=== PATIENT | female | born 1955 | race Caucasian/White ===

== ENCOUNTER 2021-08-05 15:17 | Emergency (ER) | payer BC ==
--- OUTSIDE RECORDS SUMMARY | 2021-08-05 15:21 | XMS REPORT | Continuity of Care Document ---
:1955 Author Organization [facility] t Address [address] [place] [address] Care Team Providers Name Role Phone Virgen DE JESUS Attending Clinician Unavailable Lab, Fam Pob I Attending Clinician Unavailable Virgen Pena Attending Clinician Payers Payer Name Policy Type Policy Number Effective Date Expiration Date S [facility] - [id number] 2020 00:00:00 OUT OF STATE Problems This patient has no known problems. Allergies, Adverse Reactions, Alerts Allergy Allergy Status Severity Reaction(s) Onset Inactive Treating Comm ents Source Name Type Date Date Clinician NO KNOWN Drug Active Univers ALLERGIE Class ity of [facility] Latex Adverse Active rash [facility] Social History Social Habit Start Date Stop Date Quantity Comments Source Sex Assigned At Uni versity [facility] Exposure to SARS-CoV-2 Not sure [facility] [place] (event) [facility] Smoking Status Start Date Stop Date Source Unknown if ever smoked Universit y [facility] Medications Ordered Filled Start Stop Current Ordering Indication Dosage Frequency Signature Comments Components Source Medication Medication Date Date Medication? Clinician (SIG) Name Name Probiotic Probiotic Yes Nelsy as [facility] Calcium + D Calcium + D Yes Nelsy as [facility] Procedures This patient has no known procedures. Encounters Start End Encounter Admission Attending Care Care Encounter Source Date/Time Date/Time Type Type Clinicians Facility Department ID 2021-07-18 2021-07-18 ambulatory [facility] [id number] [facility] Outpat[facility] ent Clinics 2020-08-15 2020-08-15 Outpatient Rafy GISSELL [facility] [id number] Univers 13:00:00 13:00:00 DANA la [facility] 2020-08-15 2020-08-15 Laboratory Lab, Adc Fam Pob I [facility] 1.2. [id number] [facility] 12:37:12 12:57:[address] [id number] [id number] Jose as Professio [id number] [address] Office Building One 2019-10-27 2019-10-27 [facility] [id number] [address] 11:26:00 11:26:00 [facility] Medicine Outpati ent Clinics 2019-10-15 2019-10-15 [facility] [id number] [address] 23[facility]06:00 23:06:00 [facility] Medicine Outpati [facility] Clinics 2019-10-11 2019-10-11 [facility] [id number] 11:15:00 11:15:00 [facility] Medicine Outpati ent Clinics 2019-09-27 2019-09-27 [facility] [id number] 10:47:00 10:47:00 [facility] Medicine Outpati ent Clinics 2019-06-13 2019-06-13 [facility] [id number] [address] 11:40:00 11:40:00 [facility] Medicine Outpati ent Clinics 2018-12-17 2018-12-17 [facility] [id number] 10:20:00 10:20:00 [facility] Medicine Outpati ent Clinics 2018-11-18 2018-11-18 [facility] [id number] 10:20[facility]00 10:20:00 [facility] 2018-07-05 2018-07-05 Outpatient Grace Drake [id number] [facility] 08[facility]40[facility]00 08:40:00 [facility] 2018-06-23 2018-06-23 Outpatient Grace Drake [id number] [facility] 09:00:00 09:00:00 [facility] ent Clinics Results This patient has no known results.
[2021-08-05 16:09] LABS: Absolute Lymphocytes (CBC) 1.7 K/uL (0.7-4.9); Hematocrit 37.9 % (36.0-45.0); Lymphocytes % 29.2 % (15.3-44.8); MPV 7.3 fL (7.6-11.3); RBC Red Blood Cell Count 4.29 M/uL (3.86-4.86)
[2021-08-05 16:12] LABS: Protime INR 0.98
[2021-08-05 16:25] LABS: ALT/SGPT 31 U/L (12-78); AST/SGOT 17 U/L (15-37); Albumin 3.8 g/dL (3.4-5.0); Alkaline Phosphatase 84 U/L (45-117); BUN Blood Urea Nitrogen 14 mg/dL (7-18); Bicarbonate 29 mmol/L (21-32); Bilirubin Direct < 0.1 mg/dL (0-0.2); Bilirubin Total 0.3 mg/dL (0.2-1.0); Glucose Level 122 mg/dL (74-106); Magnesium 2.3 mg/dL (1.8-2.4); NT PRO-BNP 60 pg/mL (<125); Potassium 3.9 mmol/L (3.5-5.1); Protein, Total 7.8 g/dL (6.4-8.2); Sodium Level 139 mmol/L (136-145)
--- NOTE | 2021-08-05 16:45 | RAD REPORT ---
EXAM DESCRIPTION: RAD - Chest Single View - 08/05/2021 4:01 pm CLINICAL HISTORY: CHEST PAIN COMPARISON: None TECHNIQUE: AP portable chest image was obtained 08/05/2021 4:01 pm . FINDINGS: No peripheral mass or consolidation. Interstitial markings are prominent. This is probably interstitial chronic disease. In the absence of a comparison. Superimposed interstitial edema or inf iltrate cannot be excluded. Heart and vasculature are normal. No measurable pleural effusion and no p neumothorax. No acute bony abnormality seen. No acute aortic findings suspected. IMPRESSION: No acute cardiopulmonary process is suspected. The mild prominence of the interstitial pattern on this baseline study is probably chronic disease ra ther than a mild interstitial edema or infiltrate.
--- NOTE | 2021-08-05 19:30 | ER ---
Nurse's Notes [facility] Name: Trish Prakash Age: 65 yrs Sex: Female : 1955 Arrival Date: 08/05/2021 Time: 15:20 Bed 18 Private MD: Dafne Esparza Diagnosis: Chest pain, unspecified Presentation: 08/05 15:28 Chief complaint: Patient states: "I was diagnosed with COVID 9 weeks ago. had gotten jd3 better, but had been coughing for 7 weeks. now I am having some chest pressure/pain and left arm numbness and that started Thursday and my doctor recommended me come to the ER and check my heart as well as to get a COVID swab.". Coronavirus screen: At this time, the client does not indicate any symptoms associated with coronavirus-19. Ebola Screen: No symptoms or risks identified at this time. Initial Sepsis Screen: Does the patient meet any 2 criteria? No. Patient's initial sepsis screen is negative. Does the patient have a suspected source of infection? No. Patient's initial sepsis screen is negative. Risk Assessment: Do you want to hurt yourself or someone else? Patient reports no desire to harm self or others. Onset of symptoms was August 05, 2021. 15:28 Method Of Arrival: Ambulatory jd3 15:28 Acuity: MIRANDA 3 jd3 Historical: - Allergies: 15:30 No Known Allergies; jd3 - Home Meds: 15:30 None [Active]; jd3 - PMHx: 15:30 None; jd3 - PSHx: 15:30 left knee; left wrist; jd3 - Immunization history:: Adult Immunizations up to date, Client reports having NOT received the Covid vaccine. Flu vaccine is not up to date. - Social history:: Smoking status: Patient denies any tobacco usage or history of. Screenin:13 Abuse screen: Denies threats or abuse. Nutritional screening: No deficits noted. ll1 Tuberculosis screening: No symptoms or risk factors identified. Fall Risk Total Suero Fall Scale indicates No Risk (0-24 pts). Assessment: 15:40 General: Appears in no apparent distress. Behavior is calm, cooperative, appropriate ll1 for age. Pain: Complains of pain in anterior aspect of left upper chest Pain currently is 3 out of 10 on a pain scale. Quality of pain is described as aching. Neuro: No deficits noted. Cardiovascular: Reports chest pain, Heart tones S1 S2 Capillary refill < 3 seconds Clubbing of nail beds is absent JVD is absent Patient's skin is warm and dry. Respiratory: No deficits noted. Musculoskeletal: Circulation, motion, and sensation intact. Capillary refill < 3 seconds, Range of motion: intact in all extremities, Reports numbness in left arm. 19:44 Reassessment: Patient appears in no apparent distress at this time. Patient and/or as6 family updated on plan of care and expected duration. Pain level reassessed. Patient is alert, oriented x 3, equal unlabored respirations, skin warm/dry/pink. Vital Signs: 15:31 BP 113 / 72; Pulse 80; Resp 17 S; Temp 97.1(TE); Pulse Ox 99% on R/A; Weight 68.04 kg jd3 (R); Height 5 ft. 0 in. (152.40 cm) (R); Pain 1/10; 16:26 BP 104 / 69; Pulse 67; Resp 16; Pulse Ox 100% ; ll1 19:30 BP 103 / 70; Pulse 64; Resp 18 S; Pulse Ox 100% on R/A; as6 15:31 Body Mass Index 29.29 (68.04 kg, 152.40 cm) jd3 ED Course: 15:20 Patient arrived in ED. mr 15:21 Dafne Esparza MD is Private Physician. mr 15:30 Triage completed. jd3 15:31 Arm band placed on. jd3 15:33 Stanford Bishop, SEEMA is Primary Nurse. ll1 15:36 [facility] pm1 15:36 Christopher Carlos MD is Attending Physician. pm1 15:41 Inserted saline lock: 22 gauge in right antecubital area, using aseptic technique. ll1 Blood collected. 16:01 XRAY Chest (1 view) In Process Unspecified. EDMS 16:13 Patient has correct armband on for positive identification. Bed in low position. Call ll1 light in reach. Side rails up X 1. Pulse ox on. NIBP on. 19:44 No provider procedures requiring assistance completed. IV discontinued, intact, as6 bleeding controlled, No redness/swelling at site. Pressure dressing applied. Administered Medications: No medications were administered Outcome: 19:30 Discharge ordered by MD. pm1 19:44 Discharged to home ambulatory. as6 19:44 Condition: stable 19:44 Discharge instructions given to patient, Instructed on discharge instructions, follow up and referral plans. Demonstrated understanding of instructions, follow-up care. 19:44 Patient left the ED. as6 Signatures: Dispatcher [employer] RANDEEXochitl HaiderClay, ZANA BUFFER CHROME pm1 Leonel Bolton RN RN jd3 Stanford Bishop RN RN ll1 Scott Gamez RN RN as6 Corrections: (The following items were deleted from the chart) 15:31 15:28 Chief complaint: Patient states: "I was diagnosed with COVID 9 weeks ago. had jd3 gotten better, but had been coughing for 7 weeks. now I am having some chest pressure/pain and left arm numbness and that started Thursday and my doctor recommended me come to the ER." jd3
--- NOTE | 2021-08-05 19:31 | EDPHYS ---
Physician Documentation [facility] Name: Trish Prakash Age: 65 yrs Sex: Female : 1955 Arrival Date: 08/05/2021 Time: 15:20 Bed 18 Private MD: Dafne Esparza ED Physician Christopher Carlos HPI: 08/05 15:47 This 65 yrs old Female presents to ER via Ambulatory with complaints of Chest pm1 Discomfort, Numbness Of Arm. 15:47 The patient or guardian reports chest pain that is located primarily in the anterior pm1 aspect of left upper chest. Onset: 4 day(s) ago. The pain does not radiate. Associated signs and symptoms: Pertinent positives: left shoulder and left wrist pain, Pertinent negatives: abdominal pain, cough, diaphoresis, dizziness, headache, nausea, shortness of breath, vomiting. The chest pain is described as burning. Duration: The patient or guardian reports a single episode, that is still ongoing, but improving. Modifying factors: The symptoms are alleviated by omeprazole OTC. the symptoms are aggravated by eating, drinking fluids. Severity of pain: in the emergency department the pain less than 1 on 10 scale. The patient has not experienced similar symptoms in the past. The patient has been recently seen by a physician: the patient's primary care provider, Dr. Esparza with similar presenting complaints, and was sent to the [facility] Emergency Department for further evaluation. Historical: - Allergies: 15:30 No Known Allergies; jd3 - Home Meds: 15:30 None [Active]; jd3 - PMHx: 15:30 None; jd3 - PSHx: 15:30 left knee; left wrist; jd3 - Immunization history:: Adult Immunizations up to date, Client reports having NOT received the Covid vaccine. Flu vaccine is not up to date. - Social history:: Smoking status: Patient denies any tobacco usage or history of. ROS: 15:47 Constitutional: Negative for fever, chills, and weight loss. pm1 15:47 Respiratory: Negative for shortness of breath, cough, wheezing, and pleuritic chest pain, Abdomen/GI: Negative for abdominal pain, nausea, vomiting, diarrhea, and constipation, Back: Negative for injury and pain, MS/Extremity: Negative for injury and deformity, Skin: Negative for injury, rash, and discoloration, Neuro: Negative for headache, weakness, numbness, tingling, and seizure. 15:47 Cardiovascular: Positive for chest pain, Negative for edema. 15:47 All other systems are negative. Exam: 15:47 Constitutional: This is a well developed, well nourished patient who is awake, alert, pm1 and in no acute distress. Head/Face: Normocephalic, atraumatic. 15:47 Skin: Warm, dry with normal turgor. Normal color with no rashes, no lesions, and no evidence of cellulitis. MS/ Extremity: Pulses equal, no cyanosis. Neurovascular intact. Full, normal range of motion. 15:47 Eyes: Exam is negative for acute changes, Periorbital structures: appear normal, Pupils: no acute changes, Extraocular movements: no acute changes, Conjunctiva: no acute changes, no injection, Sclera: no acute changes, icterus, is not appreciated. 15:47 ENT: Exam is negative for acute changes, Mouth: no acute changes, Lips: normal, moist, Oral mucosa: normal, pink and intact, moist. 15:47 Cardiovascular: Exam negative for acute changes, Rate: normal, Rhythm: regular, Pulses: no pulse deficits are appreciated, Heart sounds: normal, normal S1and S2. 15:47 Respiratory: Exam negative for acute changes, respiratory distress, shortness of breath. 15:47 Abdomen/GI: Inspection: abdomen appears normal, Palpation: abdomen is soft and non-tender, in all quadrants. 15:47 Neuro: Exam negative for acute changes, Orientation: is normal, Mentation: is normal, Motor: is normal, moves all fours. Vital Signs: 15:31 BP 113 / 72; Pulse 80; Resp 17 S; Temp 97.1(TE); Pulse Ox 99% on R/A; Weight 68.04 kg jd3 (R); Height 5 ft. 0 in. (152.40 cm) (R); Pain 1/10; 16:26 BP 104 / 69; Pulse 67; Resp 16; Pulse Ox 100% ; ll1 19:30 BP 103 / 70; Pulse 64; Resp 18 S; Pulse Ox 100% on R/A; as6 15:31 Body Mass Index 29.29 (68.04 kg, 152.40 cm) jd3 MDM: 15:46 Patient medically screened. pm1 19:29 Data reviewed: vital signs. Data interpreted: Pulse oximetry: on room air is 100 %. pm1 Interpretation: normal. Counseling: I had a detailed discussion with the patient and/or guardian regarding: the historical points, exam findings, and any diagnostic results supporting the discharge/admit diagnosis, lab results, radiology results, the need for outpatient follow up, to return to the emergency department if symptoms worsen or persist or if there are any questions or concerns that arise at home. 08/05 15:47 Order name: Basic Metabolic Panel; Complete Time: 16:29 pm08/05 15:47 Order name: CBC with Diff; Complete Time: 16:29 pm08/05 15:47 Order name: LFT's; Complete Time: 16:29 pm08/05 15:47 Order name: Magnesium; Complete Time: 16:29 pm08/05 15:47 Order name: NT PRO-BNP; Complete Time: 16:29 pm08/05 15:47 Order name: PT-INR; Complete Time: 16:29 pm08/05 15:47 Order name: Troponin HS; Complete Time: 16:29 pm08/05 15:47 Order name: XRAY Chest (1 view); Complete Time: 16:48 pm08/05 15:47 Order name: EKG; Complete Time: 15:48 pm08/05 15:47 Order name: Cardiac monitoring; Complete Time: 16:02 pm08/05 15:47 Order name: EKG - Nurse/Tech; Complete Time: 16:02 pm08/05 15:47 Order name: IV Saline Lock; Complete Time: 16:02 pm08/05 15:47 Order name: Labs collected and sent; Complete Time: 16:02 pm08/05 15:47 Order name: COVID-19 SARS RT PCR (Document "Date of Onset" if Symptomatic); Complete pm1 Time: 18:31 08/05 15:47 Order name: O2 Per Protocol; Complete Time: 16:02 pm08/05 15:47 Order name: O2 Sat Monitoring; Complete Time: 16:02 pm1 Administered Medications: No medications were administered Disposition: 08/06 08:57 Co-signature as Attending Physician, Christopher Carlos MD I agree with the assessment and kdr plan of care. Disposition Summary: 08/05/21 19:30 Discharge Ordered Location: Home pm1 Problem: new pm1 Symptoms: have improved pm1 Condition: Stable pm1 Diagnosis - Chest pain, unspecified pm1 Followup: pm1 - With: Emergency Department - When: As needed - Reason: Worsening of condition Followup: pm1 - With: Private Physician - When: 2 - 3 days - Reason: Recheck today's complaints, Continuance of care, Re-evaluation by your physician Discharge Instructions: - Discharge Summary Sheet pm1 - Nonspecific Chest Pain, Adult pm1 Forms: - Medication Reconciliation Form pm1 - Thank You Letter pm1 - Antibiotic Education pm1 - Prescription Opioid Use pm1 Signatures: Dispatcher [employer] EDMS Christopher Carlos MD MD kdr Marinas, Patrick, NP [employer] pm1 Leonel Bolton RN RN jd3
[2021-08-06 00:57] VITALS: TEMP 97.1
[2021-08-06 00:59] VITALS: O2SAT 100
[2021-08-06 01:00] VITALS: BP 103/70
--- NOTE | 2021-08-06 08:24 | EKG ---
Test Date: 2021-08-05 Test Time: 15:58:02 Carton Folder: MEASUREMENT RESULTS: Intervals: Rate: 72 MS: 162 QRSD: 78 QT: 392 QTc: 429 [place]: P: -28 MS: 162 QRS: 0 T: 26 INTERPRETIVE STATEMENTS: Normal sinus rhythm Normal ECG No previous ECG available for comparison Electronically Signed On 08-06-21 08:22:26 FEATHER [employer]KER by [place]
== END 2021-08-05 19:44 | disposition home or self-care (01) ==
LOC: ER 15:17
DX: R07.9 Chest pain, unspecified (principal); Z20.822 Contact with and (suspected) exposure to COVID-19
CPT/HCPCS: 93005; 85025; 80048; 36415; 83735; 85610; 80076; 84484; 83880; 71045; 99284; U0003

== ENCOUNTER 2022-07-02 17:36 | Emergency (ER) | payer OTHER ==
--- OUTSIDE RECORDS SUMMARY | 2022-07-02 17:41 | XMS REPORT | Continuity of Care Document ---
:1955 Author Organization [facility] t Address [address] [place] [address] Care Team Providers Name Role Phone Asked, No Pcp Primary Care Physician Unavailable Dafne Esparza Attending Clinician Unavailable ALISON DE JESUS Attending Clinician Unavailable Lab, Adc Fam Pob I Attending Clinician Unavailable Alison Pena Attending Clinician Payers Payer Name Policy Type Policy Effective Date Expiration Date Sour ce Number [employer] [place] [id number] [id number] Common [facility] Blue Cross Blue 6 [id number] 2021 [facility] 00:00:00 [facility] - [id number] 2020 OUT OF STATE 00:00:00 Problems Condition Condition Condition Status Onset Resolution Last Treating Co mments Source Name Details Category Date Date Treatment Clinician Date Closed Closed Disease Active 2015-[address] [facility] 00:00: Hospita fracture fracture 00 l of styloid of styloid process of process of left ulna left ulna Closed Closed Disease Active 2015-[address] of radius of radius 00:00: Hosp jaz 00 l [id number] Atrophy of Problem Co mmon vagina [facility] [id number] Allergic Problem Commo n rhinitis, [facility] trigger [id number] Urinary Problem Commo n incontinen Spirit ce, - [facility] unspecifie [facility] [id number] Vaginal Problem Commo n discharge Spirit - [facility] [id number] Vaginal Problem Commo n odor [facility] - [facility] [id number] Seasonal Problem Comm on allergic Spirit rhinitis, - [facility] unspecifie d [facility] [id number] Group B Problem Commo n streptococ Spirit julissa - [facility] infection [facility] [id number] Rash and Problem Comm on nonspecifi Spirit c skin - [facility] eruption [facility] [id number] Allergic Problem Comm on reaction, Spirit initial - [facility] encounter [facility] [id number] Pain of Problem Commo n female Spirit genitalia - [facility] Allergies, Adverse Reactions, Alerts Allergy Allergy Status Severity Reaction(s) Onset Inactive Treating Comm ents Source Name Type Date Date Clinician NO KNOWN Drug Active Univers ALLERGIE Class ity of [facility] 0 Drug Active rash Common allergy [facility] Family History Family Member Diagnosis Comments Start Date Stop Date Source Natural father Stroke [facility] Natural mother Diabetes [facility] Natural mother Heart disease [facility] Social History Social Habit Start Date Stop Date Quantity Comments Source History of Common Spirit - Tobacco Use [facility] Exposure to Not sure University of SARS-CoV-2 [facility] (event) Branch Tobacco use and 2016-07-10 2016-07-[address] [facility] exposure 00:00:00 00:00:00 non-user Alcohol intake 2016-07-10 2016-07-10 [facility] 00:00:00 00:00:00 non-drinker of alcohol (finding) Sex [birth year] [facility] 00:00:00 00:00:00 Smoking Status Start Date Stop Date Source Unknown if ever smoked [facility]it y [facility] Never Smoker Common [facility] - [facility] Medications Ordered Filled Start Stop Current Ordering Indication Dosage Frequency Signature Comments Components Source Medication Medication Date Date Medication? Clinician (SIG) Name Name Zofran 4 MG Zofran 4 MG 2021-07 No BID Zofran 4 2-19 MG 00:00: 00 Solumedrol Solumedrol No C ommon 125mg/2ml 125mg/2ml 12-17 Spiri t 00:00: - [facility] Solumedrol Solumedrol 2018-0 No C ommon 125mg/2ml 125mg/2ml 12-17 Spiri t 00:00: - [facility] acetaminoph 2015-07 Yes Method i en-codeine 09-07 (TYLENOL 00:00: Hospita WITH 00 l CODEINE #3) 300-30 mg per tablet ibuprofen 2015-07 Yes Methodi (ADVIL,MOTR 09-07 IN) 800 MG 00:00: Hospita tablet 00 l Probiotic Probiotic Yes Nelsy as Comm on Millender directed [facility] Calcium + D Calcium + D Yes Nelsy as Common Millender directed [facility] Magnesium Magnesium No Magnesium Vitamin D Vitamin D No Vitamin D Zinc Zinc No Zinc Vitamin C Vitamin C No Vitamin C Magnesium Magnesium No Magnesium Vitamin D Vitamin D No Vitamin D Zinc Zinc No Zinc Vitamin C Vitamin C No Vitamin C Vitamin D Vitamin D No Vitamin D Famotidine Famotidine No 1{table QD Famotidine 40 MG 40 MG t_at_be 40 MG dtime} Magnesium Magnesium No Magnesium Vitamin C Vitamin C No Vitamin C Zinc Zinc No Zinc Vitamin C Vitamin C No Vitamin C Zinc Zinc No Zinc Magnesium Magnesium No Magnesium Famotidine Famotidine No 1{table QD Famotidine 40 MG 40 MG t_at_be 40 MG dtime} Vitamin D Vitamin D No Vitamin D Immunizations Ordered Immunization Filled Immunization Date Status Commen ts Source Name Name Flucelvax - Flucelvax - 2018-05-13 Completed Common Spiri t multidose vial multidose vial 14:48:00 [facility] Flucelvax - Flucelvax - 2018-05-13 Completed Common Spiri t multidose vial multidose vial 14:48:00 [facility] Flucelvax - Flucelvax - 2018-05-13 Completed Common Spiri t multidose vial multidose vial 14:48:00 [facility] Flucelvax - Flucelvax - 2018-05-13 Completed Common Spiri t multidose vial multidose vial 14:48:00 [facility] Vital Signs Vital Name Observation Time Observation Value Comments Source height 2022-05-08 11:00:00 59 [in_i] Common [facility] weight 2022-05-08 11:00:00 157.4 [lb_av] Common [facility] temperature 2022-05-08 11:00:00 97.2 [degF] Common [facility] bmi 2022-05-08 11:00:00 31.79 kg/m2 Common [facility] oximetry 2022-05-08 11:00:00 97 % [facility] respiratory rate 2022-05-08 11:00:00 15 /min Comm on [facility] blood pressure 2022-05-08 11:00:00 117 mm[Hg] Common [facility] systolic [facility] blood pressure 2022-05-08 11:00:00 73 mm[Hg] Common [facility] - diastolic [facility] height 2021-07-18 14:00:00 59 [in_i] Common [facility] weight 2021-07-18 14:00:00 152 [lb_av] Common [facility] temperature 2021-07-18 14:00:00 97.2 [degF] Common [facility] bmi 2021-07-18 14:00:00 30.7 kg/m2 [facility] oximetry 2021-07-18 14:00:00 98 % [facility] respiratory rate 2021-07-18 14:00:00 18 /min Comm on [facility] blood pressure 2021-07-18 14:00:00 108 mm[Hg] Common [facility] systolic [facility] blood pressure 2021-07-18 14:00:00 69 mm[Hg] Common [facility] diastolic [facility] Procedures This patient has no known procedures. Plan of Care Planned Activity Planned Date Details Comments Source Future Scheduled 2022-06-27 COVID-19 VACCINE (#1) [facility] Test 18:45:57 [code = COVID-19 VACCINE (#1)] Future Scheduled 2022-06-27 BREAST CANCER [facility] Test 18:45:57 SCREENING [code = BREAST CANCER SCREENING] Future Scheduled 2022-06-[address] [facility] Test 18:45:57 [code = COLONOSCOPY SCREENING] Future Scheduled 2022-06-27 SHINGLES [facility]ACCINES ([facility] 18:45:57 of 2) [code = SHINGLES VACCINES (1 of 2)] Future Scheduled 2022-06-27 65[facility] [facility] Test 18:45:57 VACCINE (1 - PCV) [code = 65+ PNEUMOCOCCAL VACCINE (1 - PCV)] Future Scheduled 2022-06-27 [facility]FLUENZA [facility]ACCINE [facility] Test 18:45:57 [code = INFLUENZA VACCINE] Encounters Start End Encounter Admission Attending Care Care Encounter Source Date/Time Date/Time Type Type Clinicians Facility Department ID 2021-08-07 Outpatient Dafne Esparza STLMLC STLMLC [id number] Common 14:34:16 [facility] 2021-08-07 Outpatient STLMLC STLMLC [id number] Common 14:31:58 [facility] 2021-08-07 Outpatient STLMLC STLMLC [id number] Common 14:31:29 [facility] 2021-08-07 Outpatient STLMLC STLMLC [id number] Common 14:18:46 [id number] [facility] 2022-06-30 2022-06-30 (TEL) STLMLC STLMLC [id number] Co mmon 00:00:00 00:00:00 [facility] 2022-05-08 2022-05-08 OFFICE STLMLC STLMLC [id number] Co mmon 00:00:00 00:00:00 VISIT EST Spir it PT LEVEL [address] [place] [address] 2021-08-05 2021-08-05 (TEL) STLMLC STLMLC [id number] Co mmon 00:00:00 00:00:00 [facility] 2021-07-18 2021-07-18 OFFICE STLMLC STLMLC [id number] Co mmon 00:00:00 00:00:00 VISIT EST Spir it PT LEVEL 3 - [facility] 2020-08-15 2020-08-15 Outpatient R GISSELL [facility] [id number] Univers 13:00:00 13:00:00 ALISON ish [facility] 2020-08-15 2020-08-15 Laboratory Lab, Adc Fam Pob I [facility] 1.2. [id number] Univers 12:37:12 12:57:12 Only Gissell Alison [facility] [id number] itish [facility] [id number] Jose as Professio [phone] [place] [address] [address] 2019-10-27 2019-10-27 [id number] Common 11:26:00 11:26:[address] [facility] [address] Spir [address] Road [facility] 2019-10-15 2019-10-15 [facility] [id number] Common 23:06:00 23:06:[address] [facility] 2019-10-11 2019-10-11 [facility] [id number] Common 11:15:00 11:15:[address] [facility] 2019-09-27 2019-09-27 [facility] [id number] Common 10:47:00 10:47:[address] [facility] 2019-06-13 2019-06-13 [facility] [id number] Common 11:40:00 11:40:[address] [facility] 2018-12-17 2018-12-17 [facility] [id number] Common 10:20:00 10:20:[address] [facility] 2018-11-18 2018-11-18 [facility] [id number] Common 10:20:00 10:20:[address] [facility] 2018-07-05 2018-07-05 [facility] [id number] Common 08:40:00 08:40:00 [facility] it Road [facility] 2018-06-23 2018-06-23 Outpatient Grace Drake [id number] Common 09:00:00 09:00:00 [facility] it [facility] Results This patient has no known results.
[2022-07-02] MEDS ORDERED: ALBUTEROL 2.5 MG/3 ML NEB SOL ONE (20:02)
[2022-07-02] MEDS ORDERED: IPRATROPIUM BROM 0.5MG/2.5ML ONE (20:02)
[2022-07-02] MEDS ORDERED: predniSONE 20 MG TAB ONE (20:03)
--- NOTE | 2022-07-02 20:40 | RAD REPORT ---
EXAM DESCRIPTION: Daniella Single View07/02/2022 8:30 pm CLINICAL HISTORY: Cough COMPARISON: July 2021 FINDINGS: The lungs appear clear of acute infiltrate. The heart is normal size IMPRESSION: No acute abnormalities displayed
--- NOTE | 2022-07-02 21:01 | ER ---
Nurse's Notes [facility] Name: Trish Prakash Age: 66 yrs Sex: Female : 1955 Arrival Date: 07/02/2022 Time: 17:40 Bed DIS2 Private MD: Diagnosis: Acute bronchitis, unspecified Presentation: 07/02 19:49 Chief complaint: Patient states: over the last week I've had a fever, chills, all over kr3 aches, with N/V/D. PCP gave me zofran for the nausea and it has helped. Now I have a lingering cough with congestion. Coronavirus screen: Vaccine status: Patient reports being unvaccinated. Ebola Screen: Patient denies travel to an Ebola-affected area in the 21 days before illness onset. Initial Sepsis Screen: Does the patient meet any 2 criteria? No. Patient's initial sepsis screen is negative. Does the patient have a suspected source of infection? Yes: Productive cough/pneumonia. Risk Assessment: Do you want to hurt yourself or someone else? Patient reports no desire to harm self or others. Onset of symptoms was June 25, 2022. 19:49 Method Of Arrival: Ambulatory kr3 19:49 Acuity: MIRANDA 4 kr3 Triage Assessment: 19:53 General: Appears in no apparent distress. comfortable, Behavior is calm, cooperative, kr3 appropriate for age. Pain: Denies pain. Historical: - Allergies: 19:52 Latex, Natural Rubber; kr3 - PSHx: 19:52 left knee; Left wrist; kr3 - Immunization history:: Adult Immunizations not up to date. - Social history:: Smoking status: Patient denies any tobacco usage or history of. Screenin:12 [facility] ED Fall Risk Assessment (Adult) History of falling in the last 3 months, kr3 including since admission No falls in past 3 months (0 pts) Confusion or Disorientation No (0 pts) Intoxicated or Sedated No (0 pts) Impaired Gait No (0 pts) Mobility Assist Device Used No (0 pt) Altered Elimination No (0 pt) Score/Fall Risk Level 0 - 2 = Low Risk. Abuse screen: Denies threats or abuse. Nutritional screening: No deficits noted. Tuberculosis screening: No symptoms or risk factors identified. Assessment: 21:11 Reassessment: No changes from previously documented assessment. Patient and/or family kr3 updated on plan of care and expected duration. Pain level reassessed. Patient is alert, oriented x 3, equal unlabored respirations, skin warm/dry/pink. Vital Signs: 19:49 BP 105 / 64; Pulse 58; Resp 16; Temp 96.4(O); Pulse Ox 95% on R/A; kr3 19:52 Weight 68.04 kg; Height 5 ft. 0 in. (152.40 cm); kr3 21:11 BP 108 / 69; Pulse 69; Resp 18; Pulse Ox 97% on R/A; kr3 19:52 Body Mass Index 29.29 (68.04 kg, 152.40 cm) kr3 ED Course: 17:40 Patient arrived in ED. rg4 19:04 Whitley Jimenez MD is Attending Physician. sd2 19:49 Eliz Mckeon RN is Primary Nurse. kr3 19:52 Triage completed. kr3 19:53 Arm band placed on Patient placed in a hallway bed, in view of staff members. kr3 20:13 X-ray completed. Portable x-ray completed in exam room. Patient tolerated procedure mh1 well. 20:31 XRAY Chest (1 view) In Process Unspecified. EDMS 21:12 in treatment chair. kr3 21:12 No provider procedures requiring assistance completed. Patient did not have IV access kr3 during this emergency room visit. Administered Medications: 20:13 Drug: predniSONE 60 mg Route: PO; kr3 21:13 Follow up: Response: No adverse reaction kr3 20:13 Drug: DuoNeb (albuterol 2.5 mg, ipratropium 0.5 mg) (3:1) (2.5 mg - 0.5 mg) 3 ml Route: kr3 Nebulizer; 21:13 Follow up: Response: No adverse reaction kr3 Medication: 21:13 VIS not applicable for this client. kr3 Outcome: 21:00 Discharge ordered by . sd2 21:12 Discharged to home ambulatory. kr3 21:12 Condition: stable 21:12 Discharge instructions given to patient, Instructed on discharge instructions, follow up and referral plans. medication usage, Demonstrated understanding of instructions, follow-up care, medications, Prescriptions given X 3. 21:13 Patient left the ED. kr3 Signatures: Dispatcher [employer] EDMS Deandre Hoytha mh1 Taylor Abdi rg4 Whitley Jimenez MD MD sd2 Eliz Mckeon RN RN kr3
--- NOTE | 2022-07-02 21:01 | EDPHYS ---
Physician Documentation [facility] Name: Trish Prakash Age: 66 yrs Sex: Female : 1955 Arrival Date: 07/02/2022 Time: 17:40 Bed DIS2 Private MD: ED Physician Whitley Jimenez HPI: 07/02 19:56 This 66 yrs old Female presents to ER via Ambulatory with complaints of Cough. sd2 19:56 66 yo F presents with CC of cough. Reports started 1 week ago with fever, nausea, sd2 cough, congestion and body aches. Had negative COVID test and placed on zofran which improved her nausea. Reports concern for cough and wheezing despite taking OTC cough medications. Denies chest pain, vomiting or diarrhea.. Historical: - Allergies: 19:52 Latex, Natural Rubber; kr3 - PSHx: 19:52 left knee; Left wrist; kr3 - Immunization history:: Adult Immunizations not up to date. - Social history:: Smoking status: Patient denies any tobacco usage or history of. ROS: 19:56 Eyes: Negative for injury, pain, redness, and discharge, Cardiovascular: Negative for sd2 chest pain, palpitations, and edema. 19:56 MS/Extremity: Negative for injury and deformity, Skin: Negative for injury, rash, and discoloration, Neuro: Negative for headache, numbness and tingling. 19:56 Constitutional: Positive for body aches, chills, fever, Negative for weight loss. 19:56 Respiratory: Positive for cough, shortness of breath, wheezing, Negative for dyspnea on exertion. 19:56 Abdomen/GI: Positive for nausea, Negative for abdominal pain, vomiting, diarrhea. Exam: 19:56 Constitutional: This is a well developed, well nourished patient who is awake, alert, sd2 and in no acute distress. Head/Face: Normocephalic, atraumatic. Eyes: EOMI, normal conjunctiva bilaterally Chest/axilla: Normal chest wall appearance and motion. Nontender with no deformity. Cardiovascular: Regular rate and rhythm with a normal S1 and S2. No gallops, murmurs, or rubs. 2+ distal pulses. Respiratory: Expiratory wheeze noted in bilateral lung keith, no increased WOB or respiratory distress Abdomen/GI: Soft, non-tender, with normal bowel sounds. No guarding or rebound. No evidence of tenderness throughout. Skin: Warm, dry with normal turgor. Normal color with no rashes, no lesions, and no evidence of cellulitis. MS/ Extremity: Pulses equal, no cyanosis. Neurovascular intact. Full, normal range of motion. Ambulatory without difficulty. Psych: Awake, alert, with orientation to person, place and time. Behavior, mood, and affect are within normal limits. Vital Signs: 19:49 BP 105 / 64; Pulse 58; Resp 16; Temp 96.4(O); Pulse Ox 95% on R/A; kr3 19:52 Weight 68.04 kg; Height 5 ft. 0 in. (152.40 cm); kr3 21:11 BP 108 / 69; Pulse 69; Resp 18; Pulse Ox 97% on R/A; kr3 19:52 Body Mass Index 29.29 (68.04 kg, 152.40 cm) kr3 MDM: 19:47 Patient medically screened. sd2 19:56 Differential Diagnosis: Other Differential diagnosis includes but is not limited to: sd2 Viral URI, acute otitis media, acute otitis externa, pneumonia, UTI, COVID, flu, herpangina, bronchitis among others. Data reviewed: vital signs, nurses notes. 20:59 Data reviewed: radiologic studies. Counseling: I had a detailed discussion with the sd2 patient and/or guardian regarding: the historical points, exam findings, and any diagnostic results supporting the discharge/admit diagnosis, radiology results, the need for outpatient follow up, to return to the emergency department if symptoms worsen or persist or if there are any questions or concerns that arise at home. Medical screen evaluation completed. EMTALA emergency medical condition absent. ED course: Imaging reviewed with no acute process. Pt feeling improved after treatment. Advised of continued supportive care for symptoms and need for outpatient follow up. Pt verbalizes understanding of strict return precautions. . 07/02 19:47 Order name: XRAY Chest (1 view); Complete Time: 20:41 sd2 Administered Medications: 20:13 Drug: predniSONE 60 mg Route: PO; kr3 21:13 Follow up: Response: No adverse reaction kr3 20:13 Drug: DuoNeb (albuterol 2.5 mg, ipratropium 0.5 mg) (3:1) (2.5 mg - 0.5 mg) 3 ml Route: kr3 Nebulizer; 21:13 Follow up: Response: No adverse reaction kr3 Disposition Summary: 07/02/22 21:00 Discharge Ordered Location: Home sd2 Problem: new sd2 Symptoms: have improved sd2 Condition: Stable sd2 Diagnosis - Acute bronchitis, unspecified sd2 Followup: sd2 - With: Private Physician - When: 2 - 3 days - Reason: Recheck today's complaints, Continuance of care, Re-evaluation by your physician Discharge Instructions: - Discharge Summary Sheet sd2 - Acute Bronchitis, Adult sd2 Forms: - Medication Reconciliation Form sd2 - Thank You Letter sd2 - Antibiotic Education sd2 - Prescription Opioid Use sd2 Prescriptions: - albuterol sulfate 90 mcg/actuation Inhalation HFA aerosol inhaler - inhale 2 puff by INHALATION route every 4-6 hours As needed; 1 Inhaler; sd2 Refills: 0, Product Selection Permitted - azithromycin 250 mg Oral tablet - take 2 tablet by ORAL route once daily for 1 day then 1 tablet (250 mg) by oral sd2 route once daily for 4 days; 6 tablet; Refills: 0, Product Selection Permitted - Prednisone 20 mg Oral Tablet - take 2 tablets by ORAL route once daily for 5 days; 10 tablet; Refills: 0, sd2 Product Selection Permitted Signatures: Dispatcher [employer] Whitley Miles MD MD sd2 Eliz Mckeon RN RN kr3
[2022-07-02 21:18] VITALS: TEMP 96.4
[2022-07-02 21:19] VITALS: BP 108/69; O2SAT 97
== END 2022-07-02 21:13 | disposition home or self-care (01) ==
LOC: ER 17:36
DX: J20.9 Acute bronchitis, unspecified (principal); Z91.040 Latex allergy status; Z91.048 Other nonmedicinal substance allergy status
CPT/HCPCS: 71045; J7512; J7613; J7644

== ENCOUNTER 2023-12-13 13:53 | Emergency (ER) | payer OTHER ==
[2023-12-13 14:45] LABS: Specific Gravity < 1.005 (1.005-1.030); Sqamous Epithelial <5 /HPF (None Seen); Urine Bacteria <20 /HPF (<20); Urine Bilirubin NEGATIVE (Negative); Urine Blood Negative (Negative); Urine Clarity Turbid (Clear); Urine Color Colorless (Yellow); Urine Culture Reflex Order NOT NEEDED; Urine Glucose NEGATIVE (Negative); Urine Ketones NEGATIVE (Negative); Urine Micro Reflex YN NO BILL MICROSCOPIC; Urine Nitrite NEGATIVE (Negative); Urine Protein NEGATIVE (Negative); Urine RBC <5 /HPF (None Seen); Urine Urobilinogen Normal (Normal); Urine WBC <5 /HPF (<5); Urine pH 6.5 (5.0-7.0)
[2023-12-13] MEDS ORDERED: HYDROCODONE/APAP 7.5/325 MG TAB ONE (15:08)
--- NOTE | 2023-12-13 15:49 | RAD REPORT ---
EXAM DESCRIPTION: CT - Pelvis Wo Cont - 12/13/2023 3:09 pm CLINICAL HISTORY: Pelvic pain COMPARISON: None. TECHNIQUE: Computed axial tomography of the pelvis was obtained. Coronal and sagittal reconstruction performed All CT scans are performed using dose optimization technique as appropriate and may include automated exposure control or mA/KV adjustment according to patient size. FINDINGS: Retroverted uterus. Small calcifications may represent a fibroid. No adnexal mass. No fluid No evidence diverticulitis. Normal appendix. Small to moderate umbilical hernia contains fat. Bladder wall thickness is normal. A mass is not seen IMPRESSION: No acute abnormality is displayed
--- NOTE | 2023-12-13 16:24 | EDPHYS ---
Physician Documentation [facility] Name: Trish Prakash Age: 68 yrs Sex: Female : 1955 Arrival Date: 12/13/2023 Time: 13:53 Bed 13 Private MD: ED Physician Whitley Jimenez HPI: 12/12 17:36 This 68 yrs old Female presents to ER via Ambulatory with complaints of Pelvic Pain. sb4 17:36 patient reports intermittent pelvic pain for 2.5 months now, primarily a burning sb4 sensation. she initially saw her PCP who put her on a steroid, symptoms improved then came back. then she was placed on flagyl which did the same thing. shortly after her symptoms came back and she was put on clindamycin which improved her symptoms but again they came back. she states she saw OBGYN 2 weeks ago and had pap smear and transvaginal US but does not yet have the results. she comes in today requesting pain relief. 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 - Infectious Disease History:: Denies. - Social history:: Smoking status: Patient denies any tobacco usage or history of. ROS: 17:36 Constitutional: Negative for fever, chills, and weight loss, sb4 17:36 : Positive for pelvic pain, 17:36 All other systems are negative, Exam: 17:36 Constitutional: This is a well developed, well nourished patient who is awake, alert, sb4 and in no acute distress. Head/Face: Normocephalic, atraumatic. Eyes: Extra-ocular motions intact. Periorbital areas with no swelling, redness, or edema. ENT: Mucous membranes moist. Cardiovascular: Regular rate and rhythm with a normal S1 and S2. Respiratory: Lungs have equal breath sounds bilaterally, clear to auscultation and percussion. No rales, rhonchi or wheezes noted. No increased work of breathing, no retractions or nasal flaring. Abdomen/GI: Soft, non-tender, no distension. Skin: Warm, dry with normal turgor. Normal color with no rashes, no lesions, and no evidence of cellulitis. MS/ Extremity: Pulses equal, no cyanosis. Neurovascular intact. Full, normal range of motion. Vital Signs: 14:08 BP 124 / 80; Pulse 63; Resp 16; Temp 97.5; Pulse Ox 99% ; Weight 68.04 kg; Height 5 ft. ll1 0 in. ; Pain 6/10; 16:32 BP 116 / 74; Pulse 56; Resp 18 S; Pulse Ox 99% on R/A; kc6 14:08 Body Mass Index 29.29 (68.04 kg, 152.4 cm) ll1 14:08 Pain Scale: Adult ll1 MDM: 14:16 Patient medically screened. sb4 17:36 Data reviewed: vital signs, nurses notes, lab test result(s), radiologic studies, and sb4 as a result, I will discharge patient. Historians other than the Patient: Spouse/Significant Other: . Counseling: I had a detailed discussion with the patient and/or guardian regarding the historical points, exam findings, and any diagnostic results supporting the discharge/admit diagnosis, lab results, radiology results, the need for outpatient follow up, a urologist, to return to the emergency department if symptoms worsen or persist or if there are any questions or concerns that arise at home. 12/12 14:16 Order name: UAM; Complete Time: 14:46 sb4 12/12 14:52 Order name: Pelvis Wo Cont CT; Complete Time: 15:53 sb4 Administered Medications: 15:16 Drug: Hydrocodone-Acetaminophen PO (7.5 mg-325 mg) 1 tabs PO once Route: PO; kc6 16:25 Follow up: Response: No adverse reaction; Pain is decreased; RASS: Alert and Calm (0) kc6 Disposition: 19:11 I reviewed the patient's care provided by the Advanced Practice Provider and agree with sd2 the diagnosis and treatment plan. Disposition Summary: 12/13/23 16:24 Discharge Ordered Notes: Location: Home sb4 Problem: new sb4 Symptoms: have improved sb4 Condition: Stable sb4 Diagnosis - Dysuria sb4 - Pelvic and perineal pain sb4 Followup: sb4 - With: Tom Reese MD - When: As needed - Reason: Recheck today's complaints, Re-evaluation by your physician Discharge Instructions: - Discharge Summary Sheet sb4 - Dysuria sb4 Forms: - Patient Portal Instructions sb4 - Leadership Thank You Letter sb4 Prescriptions: - Pyridium 200 mg Oral tablet - take 1 tablet ORAL route every 8 hours As needed; 30 tablet; Refills: 0, sb4 Product Selection Permitted Signatures: Dispatcher [employer] Stanford Aviles RN RN ll1 Whitley Jimenez MD MD sd2 Christina Gandhi RN RN kc6 Jenniffer Good PA-C PAVictorino sb4 Corrections: (The following items were deleted from the chart) 14:52 14:52 Pelvis Wo Cont+CT.RAD.BRZ ordered. EDMS EDMS
--- NOTE | 2023-12-13 16:24 | ER ---
Nurse's Notes [facility] Name: Trish Prakash Age: 68 yrs Sex: Female : 1955 Arrival Date: 12/13/2023 Time: 13:53 Bed 13 Private MD: Diagnosis: Dysuria;Pelvic and perineal pain Presentation: 12/12 14:08 Chief complaint: Patient states: Pelvic pain and urinary frequency, foul odor of urine ll1 off/on since September 24. No fever. Coronavirus screen: Client denies travel out of the [place] in the last 14 days. At this time, the client does not indicate any symptoms associated with coronavirus-19. Ebola Screen: Patient denies travel to an Ebola-affected area in the 21 days before illness onset. Initial Sepsis Screen: Does the patient meet any 2 criteria? No. Patient's initial sepsis screen is negative. Does the patient have a suspected source of infection? No. Patient's initial sepsis screen is negative. Risk Assessment: Do you want to hurt yourself or someone else? Patient reports no desire to harm self or others. Onset of symptoms was September 25, 2023. 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 - Infectious Disease History:: Denies. - Social history:: Smoking status: Patient denies any tobacco usage or history of. Screenin:30 [facility] ED Fall Risk Assessment (Adult) History of falling in the last 3 months, kc6 including since admission No falls in past 3 months (0 pts) Confusion or Disorientation No (0 pts) Intoxicated or Sedated No (0 pts) Impaired Gait No (0 pts) Mobility Assist Device Used No (0 pt) Altered Elimination No (0 pt) Score/Fall Risk Level 0 - 2 = Low Risk. Abuse screen: Denies threats or abuse. Denies injuries from another. Nutritional screening: No deficits noted. Tuberculosis screening: No symptoms or risk factors identified. Assessment: 14:30 General: Appears in no apparent distress. comfortable, well groomed, well developed, kc6 Behavior is calm, cooperative, appropriate for age. Pain: Complains of pain in pelvis. Neuro: Level of Consciousness is awake, alert, obeys commands, Oriented to person, place, time, situation, Appropriate for age. Cardiovascular: Capillary refill < 3 seconds. Respiratory: Airway is patent Trachea midline Respiratory effort is even, unlabored, Respiratory pattern is regular, symmetrical. GI: No signs and/or symptoms were reported involving the gastrointestinal system. : Reports burning with urination, urgency, urinary frequency. EENT: No signs and/or symptoms were reported regarding the EENT system. Derm: No signs and/or symptoms reported regarding the dermatologic system. Skin is intact, is healthy with good turgor, Skin is pink, warm \T\ dry. Musculoskeletal: No signs and/or symptoms reported regarding the musculoskeletal system. Circulation, motion, and sensation intact. Capillary refill < 3 seconds, Range of motion: intact in all extremities. 15:23 Reassessment: Patient appears in no apparent distress at this time. No changes from kc6 previously documented assessment. Patient and/or family updated on plan of care and expected duration. Pain level reassessed. Patient is alert, oriented x 3, equal unlabored respirations, skin warm/dry/pink. 16:25 Reassessment: Patient appears in no apparent distress at this time. No changes from kc6 previously documented assessment. Patient and/or family updated on plan of care and expected duration. Pain level reassessed. Patient is alert, oriented x 3, equal unlabored respirations, skin warm/dry/pink. Vital Signs: 14:08 BP 124 / 80; Pulse 63; Resp 16; Temp 97.5; Pulse Ox 99% ; Weight 68.04 kg; Height 5 ft. ll1 0 in. ; Pain 6/10; 16:32 BP 116 / 74; Pulse 56; Resp 18 S; Pulse Ox 99% on R/A; kc6 14:08 Body Mass Index 29.29 (68.04 kg, 152.4 cm) ll1 14:08 Pain Scale: Adult ll1 ED Course: 13:57 Patient arrived in ED. ts1 14:08 Arm band placed on. ll1 14:15 Triage completed. ll1 14:16 Jenniffer Good PA-C is PHCP. sb4 14:16 Whitley Jimenez MD is Attending Physician. sb4 14:28 Christina Gandhi, RN is Primary Nurse. kc6 14:30 Patient has correct armband on for positive identification. Bed in low position. Call kc6 light in reach. Side rails up X 1. Adult w/ patient. Client placed on continuous cardiac and pulse oximetry monitoring. NIBP monitoring applied. 15:[address] In Process Unspecified. EDMS 16:23 Tom Reese MD is Referral Physician. sb4 16:32 No provider procedures requiring assistance completed. Patient did not have IV access kc6 during this emergency room visit. Administered Medications: 15:16 Drug: Hydrocodone-Acetaminophen PO (7.5 mg-325 mg) 1 tabs PO once Route: PO; kc6 16:25 Follow up: Response: No adverse reaction; Pain is decreased; RASS: Alert and Calm (0) kc6 Medication: 16:33 VIS not applicable for this client. kc6 Outcome: 16:24 Discharge ordered by MD. sb4 16:32 Discharged to home ambulatory, with significant other, kc6 16:32 Condition: improved 16:32 Discharge instructions given to patient, significant other, Instructed on discharge instructions, follow up and referral plans. medication usage, Demonstrated understanding of instructions, follow-up care, medications, Prescriptions given X 1, 16:33 Patient left the ED. kc6 Signatures: Dispatcher [employer] EDMS Stanford Bishop RN RN ll1 Christina Gandhi, RN RN kc6 Jenniffer Good, PAAnnelC PAVictorino sb4 Dina Cortez PAS PAS ts1
[2023-12-13 16:49] VITALS: BP 116/74; TEMP 97.5; O2SAT 99
== END 2023-12-13 16:33 | disposition home or self-care (01) ==
LOC: ER 13:53
DX: R10.2 Pelvic and perineal pain (principal); R30.0 Dysuria; Z91.040 Latex allergy status
CPT/HCPCS: 72192; 81001; 99283

== ENCOUNTER 2024-11-29 08:55 | Emergency (ER) | payer OTHER ==
--- NOTE | 2024-11-29 10:46 | RAD REPORT ---
Exam:Wrist Left 3 View HISTORY: Left wrist pain FINDINGS: Sideplate and screws affixing old radial fracture. No acute fracture or dislocation seen. The bones are osteoporotic
--- NOTE | 2024-11-29 10:56 | ER ---
Nurse's Notes [facility] Name: Trish Prakash Age: 69 yrs Sex: Female : 1955 Arrival Date: 11/29/2024 Time: 08:55 Bed 10 Private MD: Diagnosis: Pain in left wrist Presentation: 11/29 09:16 Chief complaint: Patient states: Pain, described as "neuropathy" to L forearm/ wrist x ss 1 month. Coronavirus screen: Client denies travel out of the [place] in the last 14 days. Ebola Screen: Patient denies exposure to infectious person. Patient denies travel to an Ebola-affected area in the 21 days before illness onset. Initial Sepsis Screen: Does the patient meet any 2 criteria? No. Patient's initial sepsis screen is negative. Does the patient have a suspected source of infection? No. Patient's initial sepsis screen is negative. Risk Assessment: Do you want to hurt yourself or someone else? Patient reports no desire to harm self or others. Onset of symptoms was October 2024. 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 - Social history:: Smoking status: Patient denies any tobacco usage or history of. Screenin:48 Abuse screen: Denies threats or abuse. Denies injuries from another. Nutritional ss screening: No deficits noted. Tuberculosis screening: Never had TB. Assessment: 09:48 General: Appears in no apparent distress. comfortable, Behavior is calm, cooperative, ss Denies fever, feeling ill, fatigue, chills. Pain: Complains of pain in dorsal aspect of left forearm and left wrist Pain currently is 6 out of 10 on a pain scale. Neuro: Level of Consciousness is awake, alert, obeys commands, Oriented to person, place, time, situation. Cardiovascular: Pulses are palpable in right radial artery and left radial artery. Respiratory: Airway is patent Respiratory effort is even, unlabored, Respiratory pattern is regular, symmetrical. Derm: Skin Skin is. Vital Signs: 09:16 BP 124 / 78; Pulse 83; Resp 16; Temp 98.4(TE); Pulse Ox 99% on R/A; Weight 70.31 kg; ss Height 5 ft. 0 in. ; Pain 6/10; 09:16 Body Mass Index 30.27 (70.31 kg, 152.4 cm) ss 09:16 Pain Scale: Adult ss ED Course: 09:01 Patient arrived in ED. cj3 09:12 Ronan Jhaveri DO is Attending Physician. ms3 09:18 Triage completed. ss 09:18 Arm band placed on right wrist. ss 09:47 Kajal Oconnell, RN is Primary Nurse. ss 09:48 Patient has correct armband on for positive identification. ss 10:07 EKG done, by senior laboratory technician. at1 10:38 Wrist Left (3 View) XRAY In Process Unspecified. EDMS 11:01 No provider procedures requiring assistance completed. Patient did not have IV access ss during this emergency room visit. Administered Medications: No medications were administered Medication: 09:48 VIS not applicable for this client. ss Outcome: 10:55 Discharge ordered by . ms3 11:01 Discharged to home ambulatory, ss 11:01 Condition: good 11:01 Discharge instructions given to patient, Instructed on discharge instructions, follow up and referral plans. Demonstrated understanding of instructions, follow-up care, 11:02 Patient left the ED. ss Signatures: Dispatcher [employer] EDMS Kajal Oconnell, RN RN ss Radha Hannah, reverse logistics analyst EKG Tat1 Ronan Jhaveri DO DO ms3 Anamika Brown cj3 Corrections: (The following items were deleted from the chart) 09:29 09:16 Acuity: MIRANDA 3 ss ss
--- NOTE | 2024-11-29 10:56 | EDPHYS ---
Physician Documentation [facility] Name: Trish Prakash Age: 69 yrs Sex: Female : 1955 Arrival Date: 11/29/2024 Time: 08:55 Bed 10 Private MD: ED Physician Ronan Jhaveri HPI: 11/29 20:13 This 69 yrs old Female presents to ER via Ambulatory with complaints of Hand Pain - LT, ms3 Hand Problem-LT. 20:13 69-year-old female with past medical history of GERD presents to the emergency ms3 department for neuropathy in her left hand for 1 month. Patient notes her left knee has been popping and catching. Patient was told by orthopedics to check with rheumatology which is scheduled for December 12.. 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 - Social history:: Smoking status: Patient denies any tobacco usage or history of. ROS: 20:13 Constitutional: Negative for fever, and chills. Cardiovascular: Negative for chest ms3 pain, and palpitations. Respiratory: Negative for shortness of breath, cough, wheezing, and pleuritic chest pain, Abdomen/GI: Negative for abdominal pain, nausea, vomiting, diarrhea, and constipation, 20:13 MS/extremity: Positive for Left wrist pain, Exam: 10:47 ECG was reviewed by the Attending Physician. ms3 20:13 Constitutional: This is a well developed, well nourished patient who is awake, alert, ms3 and in no acute distress. Cardiovascular: Regular rate and rhythm with a normal S1 and S2. No gallops, murmurs, or rubs. Normal PMI, no JVD. No pulse deficits. Respiratory: Lungs have equal breath sounds bilaterally, clear to auscultation and percussion. No rales, rhonchi or wheezes noted. No increased work of breathing, no retractions or nasal flaring. Abdomen/GI: Soft, non-tender, with normal bowel sounds. No distension or tympany. No guarding or rebound. No evidence of tenderness throughout. Skin: Warm, dry with normal turgor. Normal color with no rashes, no lesions, and no evidence of cellulitis. MS/ Extremity: Pulses equal, no cyanosis. Neurovascular intact. Full, normal range of motion. Vital Signs: 09:16 BP 124 / 78; Pulse 83; Resp 16; Temp 98.4(TE); Pulse Ox 99% on R/A; Weight 70.31 kg; ss Height 5 ft. 0 in. ; Pain 6/10; 09:16 Body Mass Index 30.27 (70.31 kg, 152.4 cm) ss 09:16 Pain Scale: Adult ss MDM: 09:46 Medical Screening Exam initiated ms3 20:13 Differential diagnosis: closed fracture, tendonitis, Arthritis. Data reviewed: vital ms3 signs, nurses notes, EKG, radiologic studies, and as a result, I will discharge patient. Independent interpretation of the following test(s) in the Emergency Department EKG: See my EKG interpretation above. Counseling: I had a detailed discussion with the patient and/or guardian regarding the historical points, exam findings, and any diagnostic results supporting the discharge/admit diagnosis, radiology results, the need for outpatient follow up, to return to the emergency department if symptoms worsen or persist or if there are any questions or concerns that arise at home. Special discussion: I discussed with the patient/guardian in detail that at this point there is no indication for admission to the hospital. It is understood, however, that if the symptoms persist or worsen the patient needs to return immediately for re-evaluation. ED course: Discussed EKG, imaging with patient. Patient to follow-up with primary care physician 2 to 3 days. Patient understands agrees with plan. All questions were answered. Return precautions discussed tingled worsening symptoms, or any other concerns. 11/29 09:47 Order name: Wrist Left (3 View) XRAY; Complete Time: 10:47 ms3 EC:47 Rate is 67 beats/min. Rhythm is regular. QRS Emmons is Normal. VA interval is normal. QRS ms3 interval is normal. Clinical impression: Normal ECG. Interpreted by me. Reviewed by me. Administered Medications: No medications were administered Disposition Summary: 11/29/24 10:55 Discharge Ordered Notes: Location: Home ms3 Condition: Stable ms3 Diagnosis - Pain in left wrist ms3 Followup: ms3 - With: Private Physician - When: 2 - 3 days - Reason: Recheck today's complaints Discharge Instructions: - Discharge Summary Sheet ms3 - Musculoskeletal Pain ms3 Forms: - Medication Reconciliation Form ms3 - Antibiotic Education ms3 - Prescription Opioid Use ms3 - Patient Portal Instructions ms3 - Leadership Thank You Letter ms3 Signatures: Dispatcher [employer] Kajal Walker RN RN Ronan Hamilton DO DO ms3
[2024-11-29 11:08] VITALS: BP 124/78; TEMP 98.4; O2SAT 99
== END 2024-11-29 11:02 | disposition home or self-care (01) ==
LOC: ER 08:55
DX: M25.532 Pain in left wrist (principal)
CPT/HCPCS: 93005; 99283